=== PATIENT | female | born 1960 | race Caucasian/White ===

== ENCOUNTER 2017-11-01 08:49 | Inpatient (IN) ==
[2017-11-01] MEDS ORDERED: SODIUM CHLORIDE 0.9% 1,000 ML IV STA (09:48)
[2017-11-01] MEDS ORDERED: ONDANSETRON 4 MG/2 ML VIAL IV STA ×2 (09:48→13:40)
[2017-11-01 10:12] LABS: Basophils # 0.1 10*3/uL (0.0-0.2); Eosinophils # 0.1 10*3/uL (0.0-0.87); Eosinophils % 0.8 % (0.00-10.9); Hematocrit 39.4 VOL% (35.7-47.0); Immature Granulocytes % 2.5 %; Immature Granulocytes Absolute 0.15 #; Lymphocytes # 1.9 10*3/uL (1.4-4.0); Mean Corpuscular Hemoglobin 26 PG (27-34); Mean Corpuscular Volume 79.4 FL (87-102); Mean Platelet Volume 10.6 FL (9.6-12.0); Monocytes # 0.2 10*3/uL (0.11-0.8); Monocytes % 3.9 % (1.7-12.7); Neutrophils # 3.5 10*3/uL (1.4-7.4); Neutrophils % 59.8 % (38.7-73.9); Platelet Count 134 T/CUMM (130-400); Red Blood Count 4.96 MC/CUMM (3.8-5.5); White Blood Count 5.9 T/CUMM (4-12)
[2017-11-01 10:39] LABS: Lactic Acid 1.4 MMOL/L (0.4-2.0)
[2017-11-01 10:41] LABS: Albumin 3.5 G/DL (3.4-5.0); Bilirubin,Total 0.8 MG/DL (0.2-1.0); Calcium 9.3 MG/DL (8.5-10.1); Osmolality,Calculated 277.5 MOS/KG (273-304); Potassium 3.9 MMOL/L (3.5-5.1); Total Protein 7.1 G/DL (6.4-8.3)
[2017-11-01 10:46] LABS: Apearance,Urine CLEAR (Clear); Bilirubin,Urine Negative (Negative); Blood, Urine Negative (Negative); Glucose,Urine (UA) Negative (Negative); Ketones,Urine Negative (Negative); Mucus,Urine Occasional /LPF (Occasional); Nitrite,Urine Negative (Negative); Protein,Urine Negative; RBC,Urine 1 /HPF (0-4); Squamous Epithelial Cell,Urine Occasional /HPF (0-10); Urine Color Yellow (Yellow); Urine Specific Gravity 1.017 (1.001-1.035); WBC,Urine 1 /HPF (0-6)
[2017-11-01 12:20] LABS: Hepatitis A Ab IgM Quant 0.24 Index; Hepatitis A Ab IgM Result Negative (Negative); Hepatitis B Core IgM Quant 0.07 Index; Hepatitis B Core IgM Result Negative (Negative); Hepatitis B Surface Ag Result Negative (Negative); Hepatitis C Virus Ab Quant 0.08 Index; Hepatitis C Virus Ab Result Negative (Negative)
[2017-11-01] MEDS ORDERED: HYDROmorphone 2 MG/1 ML VIAL IV STA (13:40)
[2017-11-01] MEDS ORDERED: ACETAMINOPHEN 325 MG TABLET PO PRN (14:39)
[2017-11-01] MEDS ORDERED: ONDANSETRON 4 MG/2 ML VIAL IV PRN (14:39)
[2017-11-01] MEDS ORDERED: ENOXAPARIN 40 MG/0.4 ML SYRINGE SUBCUT SCH (15:00)
[2017-11-01] MEDS: SODIUM CHLORIDE 0.9% 1,000 ML IV SCH (16:51)
[2017-11-01] MEDS: BUDESONIDE/FORMOTEROL 160-4.5 INHALER 6 GM INH SCH (20:14)
[2017-11-01] MEDS ORDERED: ZALEPLON 5 MG CAPSULE PO PRN (21:00)
[2017-11-02] MEDS: SODIUM CHLORIDE 0.9% 1,000 ML IV SCH (05:54)
[2017-11-02 06:43] LABS: Basophils % 0.7 % (0.0-0.8); Eosinophils # 0.1 10*3/uL (0.0-0.87); Eosinophils % 1.4 % (0.00-10.9); Hematocrit 37.5 VOL% (35.7-47.0); Hemoglobin 11.8 GM/DL (12.0-16.0); Immature Granulocytes Absolute 0.17 #; Lymphocytes # 1.9 10*3/uL (1.4-4.0); Mean Corpuscular HGB Conc 31.5 GM/DL (32-36); Mean Corpuscular Hemoglobin 26 PG (27-34); Mean Corpuscular Volume 82.1 FL (87-102); Mean Platelet Volume 10.8 FL (9.6-12.0); Monocytes # 0.3 10*3/uL (0.11-0.8); Monocytes % 5.2 % (1.7-12.7); NRBC # 0.02 10*3/uL; Neutrophils # 3.1 10*3/uL (1.4-7.4); Neutrophils % 55.7 % (38.7-73.9); Platelet Count 135 T/CUMM (130-400); Red Blood Count 4.57 MC/CUMM (3.8-5.5); Red Cell Distribution Width 16.2 % (9.3-17.3); White Blood Count 5.6 T/CUMM (4-12)
[2017-11-02 07:35] LABS: Albumin 3.3 G/DL (3.4-5.0); Bilirubin,Total 0.8 MG/DL (0.2-1.0); Calcium 8.9 MG/DL (8.5-10.1); Osmolality,Calculated 270.8 MOS/KG (273-304); Potassium 4.2 MMOL/L (3.5-5.1); Risk Ratio 5.25; VLDL CHOLESTEROL 24.6 MG/DL
[2017-11-02] MEDS: PANTOPRAZOLE 40 MG TABLET PO SCH (09:19)
[2017-11-02] MEDS: BUDESONIDE/FORMOTEROL 160-4.5 INHALER 6 GM INH SCH ×2 (09:22→21:17)
[2017-11-02 13:04] LABS: INR 0.9; Partial Thromboplastin Time 27.1 SECS (0-40)
[2017-11-02] MEDS: NICOTINE 21 MG/24 HR PATCH TRANSDERM SCH (16:26)
[2017-11-03] MEDS: HYDROmorphone 2 MG/1 ML VIAL IV PRN (04:51)
[2017-11-03] MEDS ORDERED: PROMETHAZINE 25 MG/1 ML VIAL IM ONE (07:00)
[2017-11-03] MEDS ORDERED: MIDAZOLAM 2 MG/2 ML VIAL ONE (07:01)
[2017-11-03 07:30] LABS: Albumin 3.4 G/DL (3.4-5.0); Bilirubin,Total 0.6 MG/DL (0.2-1.0); Calcium 9.1 MG/DL (8.5-10.1); Osmolality,Calculated 275.5 MOS/KG (273-304); Potassium 3.8 MMOL/L (3.5-5.1); Total Protein 7.4 G/DL (6.4-8.3)
[2017-11-03] MEDS ORDERED: MIDAZOLAM 10 MG/2 ML VIAL IV ONE (07:30)
[2017-11-03] MEDS ORDERED: LIDOCAINE 1% 20 ML VIAL MISC INJ ONE (07:30)
[2017-11-03] MEDS ORDERED: LIDOCAINE 2% 20 ML VIAL RESP TX ONE (07:30)
[2017-11-03 07:33] LABS: Basophils # 0.1 10*3/uL (0.0-0.2); Eosinophils # 0.1 10*3/uL (0.0-0.87); Hematocrit 36.4 VOL% (35.7-47.0); Immature Granulocytes % 4.2 %; Lymphocytes # 1.6 10*3/uL (1.4-4.0); Lymphocytes % 33.8 % (21.3-54.2); Mean Corpuscular Hemoglobin 26 PG (27-34); Mean Corpuscular Volume 80.2 FL (87-102); Mean Platelet Volume 11.5 FL (9.6-12.0); Monocytes # 0.3 10*3/uL (0.11-0.8); Monocytes % 5.4 % (1.7-12.7); NRBC # 0.02 10*3/uL; Neutrophils # 2.6 10*3/uL (1.4-7.4); Neutrophils % 54.6 % (38.7-73.9); Platelet Count 132 T/CUMM (130-400); Red Blood Count 4.54 MC/CUMM (3.8-5.5); Red Cell Distribution Width 16.1 % (9.3-17.3); White Blood Count 4.8 T/CUMM (4-12)
[2017-11-03] MEDS: BUDESONIDE/FORMOTEROL 160-4.5 INHALER 6 GM INH SCH ×2 (10:36→20:30)
[2017-11-03] MEDS: NICOTINE 21 MG/24 HR PATCH TRANSDERM SCH (10:36)
[2017-11-03] MEDS: PANTOPRAZOLE 40 MG TABLET PO SCH (10:36)
[2017-11-03] MEDS ORDERED: ALBUTEROL/IPRATROPIUM 3 ML NEB RESP TX PRN (10:50)
[2017-11-03] MEDS ORDERED: ALBUTEROL/IPRATROPIUM 3 ML NEB RESP TX ONE (10:50)
[2017-11-03] MEDS: DOCUSATE SODIUM 100 MG CAPSULE PO SCH (17:25)
[2017-11-03] MEDS: DILTIAZEM 30 MG TABLET PO SCH ×2 (17:25→20:28)
[2017-11-04 05:50] LABS: Basophils % 0.6 % (0.0-0.8); Eosinophils # 0.1 10*3/uL (0.0-0.87); Lymphocytes # 1.6 10*3/uL (1.4-4.0); Mean Corpuscular HGB Conc 32.4 GM/DL (32-36); Mean Corpuscular Hemoglobin 26 PG (27-34); Mean Corpuscular Volume 80.8 FL (87-102); Mean Platelet Volume 11.2 FL (9.6-12.0); Monocytes # 0.2 10*3/uL (0.11-0.8); Monocytes % 4.4 % (1.7-12.7); NRBC # 0.03 10*3/uL; Neutrophils # 2.9 10*3/uL (1.4-7.4); Platelet Count 134 T/CUMM (130-400); Red Blood Count 4.58 MC/CUMM (3.8-5.5); Red Cell Distribution Width 16.3 % (9.3-17.3)
[2017-11-04 06:09] LABS: Albumin 3.2 G/DL (3.4-5.0); Bilirubin,Total 0.8 MG/DL (0.2-1.0); Calcium 8.8 MG/DL (8.5-10.1); Osmolality,Calculated 275.7 MOS/KG (273-304); Potassium 3.9 MMOL/L (3.5-5.1); Total Protein 7.3 G/DL (6.4-8.3)
[2017-11-04] MEDS ORDERED: POTASSIUM CHLORIDE 20 MEQ TABLET PO PRN (07:43)
[2017-11-04] MEDS: DILTIAZEM 30 MG TABLET PO SCH ×4 (08:21→20:54)
[2017-11-04] MEDS: DOCUSATE SODIUM 100 MG CAPSULE PO SCH ×2 (08:21→20:54)
[2017-11-04] MEDS: METOPROLOL SUCCINATE XL 25 MG TABLET PO SCH (08:21)
[2017-11-04] MEDS: PANTOPRAZOLE 40 MG TABLET PO SCH (08:21)
[2017-11-04] MEDS: NICOTINE 21 MG/24 HR PATCH TRANSDERM SCH (08:22)
[2017-11-04] MEDS: BUDESONIDE/FORMOTEROL 160-4.5 INHALER 6 GM INH SCH ×2 (08:24→21:00)
[2017-11-04] MEDS: ASPIRIN EC 81 MG TABLET PO SCH (09:16)
[2017-11-04] MEDS: HYDROmorphone 2 MG/1 ML VIAL IV PRN (21:00)
[2017-11-05 06:38] LABS: Basophils % 0.8 % (0.0-0.8); Eosinophils # 0.1 10*3/uL (0.0-0.87); Eosinophils % 1.2 % (0.00-10.9); Hematocrit 36.9 VOL% (35.7-47.0); Hemoglobin 11.7 GM/DL (12.0-16.0); Immature Granulocytes % 4.1 %; Lymphocytes # 1.9 10*3/uL (1.4-4.0); Lymphocytes % 38.1 % (21.3-54.2); Mean Corpuscular HGB Conc 31.7 GM/DL (32-36); Mean Corpuscular Hemoglobin 26 PG (27-34); Mean Platelet Volume 11.4 FL (9.6-12.0); Monocytes # 0.2 10*3/uL (0.11-0.8); Monocytes % 4.5 % (1.7-12.7); NRBC # 0.02 10*3/uL; Neutrophils # 2.5 10*3/uL (1.4-7.4); Neutrophils % 51.3 % (38.7-73.9); Platelet Count 125 T/CUMM (130-400); Red Cell Distribution Width 16.2 % (9.3-17.3); White Blood Count 4.9 T/CUMM (4-12)
[2017-11-05 06:47] LABS: Calcium 9.4 MG/DL (8.5-10.1); Osmolality,Calculated 272.8 MOS/KG (273-304); Potassium 3.9 MMOL/L (3.5-5.1)
[2017-11-05] MEDS: NICOTINE 21 MG/24 HR PATCH TRANSDERM SCH (10:02)
[2017-11-05] MEDS: DILTIAZEM 30 MG TABLET PO SCH (10:03)
[2017-11-05] MEDS: PANTOPRAZOLE 40 MG TABLET PO SCH (10:03)
[2017-11-05] MEDS: METOPROLOL SUCCINATE XL 25 MG TABLET PO SCH (10:03)
[2017-11-05] MEDS: DOCUSATE SODIUM 100 MG CAPSULE PO SCH (10:04)
[2017-11-05] MEDS: ASPIRIN EC 81 MG TABLET PO SCH (10:04)
[2017-11-05] MEDS: BUDESONIDE/FORMOTEROL 160-4.5 INHALER 6 GM INH SCH (10:05)
[2017-11-05 12:11] VITALS: BP 123/73
== END 2017-11-05 13:04 | disposition home or self-care (01) | DRG 181 ==
LOC: N.ED 08:49 → SUATTDRO 14:19 → N.EDINP 14:19 → N.5E 15:21
PROVIDERS: ADMIT Internal Medicine; ATTEND Internal Medicine
PROC: BRONCHB (2017-11-03 07:35)

== ENCOUNTER 2018-04-10 13:25 | Inpatient (IN) ==
[2018-04-10] MEDS ORDERED: ONDANSETRON 4 MG/2 ML VIAL IV PRN (14:01)
[2018-04-10] MEDS ORDERED: LOPERAMIDE 2 MG CAPSULE PO PRN ×2 (14:01)
[2018-04-10] MEDS ORDERED: chlorproMAZINE INJ 25 MG in SODIUM CHLORIDE 0.9% 100 ML IV PRN (14:01)
[2018-04-10] MEDS ORDERED: ALUMINUM/MAGNES/SIMETH MAX STR 30 ML UDCUP PO PRN (14:01)
[2018-04-10] MEDS ORDERED: ALPRAZolam 0.25 MG TABLET PO PRN (14:01)
[2018-04-10] MEDS ORDERED: PROMETHAZINE INJ 25 MG in SODIUM CHLORIDE 0.9% 50 ML IV PRN (14:01)
[2018-04-10] MEDS ORDERED: traMADol 50 MG TABLET PO PRN (14:01)
[2018-04-10] MEDS ORDERED: guaiFENesin 200 MG/10 ML UDCUP PO PRN (14:01)
[2018-04-10] MEDS ORDERED: chlorproMAZINE 25 MG TABLET PO PRN (14:01)
[2018-04-10] MEDS ORDERED: LACTULOSE 20 GM/30 ML UDCUP PO PRN (14:01)
[2018-04-10] MEDS ORDERED: diphenhydrAMINE CAP 25 MG CAPSULE PO PRN (14:01)
[2018-04-10] MEDS ORDERED: ACETAMINOPHEN 325 MG TABLET PO PRN (14:01)
[2018-04-10] MEDS ORDERED: BENZTROPINE 2 MG/2 ML AMP IV PRN (14:01)
[2018-04-10] MEDS ORDERED: TEMAZEPAM 7.5 MG CAPSULE PO PRN (14:01)
[2018-04-10] MEDS ORDERED: MYLANTA/LIDO VISC 2:1 300 ML BOTTLE SWISH/SWAL PRN (14:01)
[2018-04-10] MEDS ORDERED: MYLANTA/LIDO VISC 2:1 300 ML BOTTLE SWISH/SPIT PRN (14:01)
[2018-04-10] MEDS ORDERED: MAGNESIUM HYDROXIDE SUSP 30 ML UDCUP PO PRN (14:01)
[2018-04-10] MEDS ORDERED: chlorproMAZINE INJ 50 MG in SODIUM CHLORIDE 0.9% 100 ML IV PRN (14:01)
[2018-04-10 14:54] LABS: Basophils # 0.1 10*3/uL (0.0-0.2); Basophils % 0.5 % (0.0-0.8); Eosinophils # 0.1 10*3/uL (0.0-0.87); Eosinophils % 0.4 % (0.00-10.9); Hematocrit 42.7 VOL% (35.7-47.0); Hemoglobin 13.6 GM/DL (12.0-16.0); Immature Granulocytes % 0.9 %; Lymphocytes # 1.8 10*3/uL (1.4-4.0); Lymphocytes % 15.5 % (21.3-54.2); Mean Corpuscular HGB Conc 31.9 GM/DL (32-36); Mean Corpuscular Hemoglobin 26 PG (27-34); Mean Corpuscular Volume 81.8 FL (87-102); Mean Platelet Volume 9.8 FL (9.6-12.0); Monocytes # 0.7 10*3/uL (0.11-0.8); Monocytes % 5.9 % (1.7-12.7); Neutrophils # 8.8 10*3/uL (1.4-7.4); Neutrophils % 76.8 % (38.7-73.9); Platelet Count 262 T/CUMM (130-400); Red Blood Count 5.22 MC/CUMM (3.8-5.5); Red Cell Distribution Width 18.4 % (9.3-17.3); White Blood Count 11.5 T/CUMM (4-12)
[2018-04-10 15:23] LABS: Albumin 3.2 G/DL (3.4-5.0); Calcium 9.6 MG/DL (8.5-10.1); Osmolality,Calculated 258.9 MOS/KG (273-304); Potassium 3.1 MMOL/L (3.5-5.1); Total Protein 7.5 G/DL (6.4-8.3); Uric Acid 8.5 MG/DL (2.6-6.0)
[2018-04-10] MEDS: FLUCONAZOLE 200 MG TABLET PO SCH (18:40)
[2018-04-10] MEDS: POTASSIUM CHLORIDE 8 MEQ CAPSULE PO SCH (18:41)
[2018-04-10] MEDS: DEXAMETHASONE 4 MG TABLET PO SCH ×2 (18:42→20:12)
[2018-04-10] MEDS: levETIRAcetam 500 MG TABLET PO SCH (20:12)
[2018-04-11] MEDS: SODIUM CHLORIDE 0.9% 1,000 ML IV SCH ×2 (01:16→15:30)
[2018-04-11 06:28] LABS: Apearance,Urine CLEAR (Clear); Bacteria,Urine Occasional /HPF (Few); Bilirubin,Urine Negative (Negative); Blood, Urine Negative (Negative); Glucose,Urine (UA) Negative (Negative); Ketones,Urine 5 mg/dL (Negative); Mucus,Urine Occasional /LPF (Occasional); Nitrite,Urine Negative (Negative); Protein,Urine Negative; RBC,Urine 5 /HPF (0-4); Urine Color Amber (Yellow); Urine Specific Gravity > 1.060 (1.001-1.035); WBC,Urine <1 /HPF (0-6)
[2018-04-11] MEDS: FLUCONAZOLE 200 MG TABLET PO SCH (10:37)
[2018-04-11] MEDS: POTASSIUM CHLORIDE 8 MEQ CAPSULE PO SCH (10:38)
[2018-04-11] MEDS: levETIRAcetam 500 MG TABLET PO SCH ×2 (10:38→21:02)
[2018-04-11] MEDS: DEXAMETHASONE 4 MG TABLET PO SCH ×3 (10:38→21:02)
[2018-04-11] MEDS: ASPIRIN EC 81 MG TABLET PO SCH (10:48)
[2018-04-11] MEDS: METOPROLOL SUCCINATE XL 25 MG TABLET PO SCH (10:48)
[2018-04-11] MEDS: NICOTINE 21 MG/24 HR PATCH TRANSDERM SCH (10:50)
[2018-04-11] MEDS: FONDAPARINUX 2.5 MG/0.5 ML SYRINGE SUBCUT SCH (10:50)
[2018-04-12] MEDS: SODIUM CHLORIDE 0.9% 1,000 ML IV SCH ×2 (05:00→20:15)
[2018-04-12] MEDS: METOPROLOL SUCCINATE XL 25 MG TABLET PO SCH (09:51)
[2018-04-12] MEDS: levETIRAcetam 500 MG TABLET PO SCH ×2 (09:51→21:33)
[2018-04-12] MEDS: FLUCONAZOLE 200 MG TABLET PO SCH (09:51)
[2018-04-12] MEDS: ASPIRIN EC 81 MG TABLET PO SCH (09:51)
[2018-04-12] MEDS: DEXAMETHASONE 4 MG TABLET PO SCH ×3 (09:51→21:33)
[2018-04-12] MEDS: FONDAPARINUX 2.5 MG/0.5 ML SYRINGE SUBCUT SCH (09:51)
[2018-04-12] MEDS: NICOTINE 21 MG/24 HR PATCH TRANSDERM SCH (09:52)
[2018-04-12] MEDS: POTASSIUM CHLORIDE 8 MEQ CAPSULE PO SCH (10:40)
[2018-04-12] MEDS ORDERED: LORazepam 2 MG/1 ML VIAL IV ONE (12:29)
[2018-04-13 06:03] LABS: Basophils % 0.2 % (0.0-0.8); Eosinophils % 0.1 % (0.00-10.9); Hematocrit 38.9 VOL% (35.7-47.0); Immature Granulocytes % 1.9 %; Immature Granulocytes Absolute 0.17 #; Lymphocytes % 11.5 % (21.3-54.2); Mean Corpuscular HGB Conc 30.8 GM/DL (32-36); Mean Corpuscular Hemoglobin 26 PG (27-34); Mean Corpuscular Volume 83.7 FL (87-102); Mean Platelet Volume 10.2 FL (9.6-12.0); Monocytes # 0.4 10*3/uL (0.11-0.8); Monocytes % 4.8 % (1.7-12.7); Neutrophils # 7.4 10*3/uL (1.4-7.4); Neutrophils % 81.5 % (38.7-73.9); Platelet Count 218 T/CUMM (130-400); Red Blood Count 4.65 MC/CUMM (3.8-5.5); Red Cell Distribution Width 18.7 % (9.3-17.3)
[2018-04-13 06:22] LABS: Albumin 2.9 G/DL (3.4-5.0); Bilirubin,Total 1.1 MG/DL (0.2-1.0); Calcium 9.2 MG/DL (8.5-10.1); Potassium 3.9 MMOL/L (3.5-5.1); Total Protein 6.6 G/DL (6.4-8.3)
[2018-04-13] MEDS: ASPIRIN EC 81 MG TABLET PO SCH (09:20)
[2018-04-13] MEDS: DEXAMETHASONE 4 MG TABLET PO SCH ×3 (09:20→21:25)
[2018-04-13] MEDS: POTASSIUM CHLORIDE 8 MEQ CAPSULE PO SCH (09:20)
[2018-04-13] MEDS: NICOTINE 21 MG/24 HR PATCH TRANSDERM SCH (09:20)
[2018-04-13] MEDS: METOPROLOL SUCCINATE XL 25 MG TABLET PO SCH (09:20)
[2018-04-13] MEDS: levETIRAcetam 500 MG TABLET PO SCH ×2 (09:20→21:25)
[2018-04-13] MEDS: FLUCONAZOLE 200 MG TABLET PO SCH (09:20)
[2018-04-13] MEDS: FONDAPARINUX 2.5 MG/0.5 ML SYRINGE SUBCUT SCH (09:21)
[2018-04-14] MEDS: DOCUSATE SODIUM 100 MG CAPSULE PO SCH (13:25)
[2018-04-14] MEDS: FLUCONAZOLE 200 MG TABLET PO SCH (13:25)
[2018-04-14] MEDS: levETIRAcetam 500 MG TABLET PO SCH ×2 (13:25→21:12)
[2018-04-14] MEDS: NICOTINE 21 MG/24 HR PATCH TRANSDERM SCH (13:26)
[2018-04-14] MEDS: DEXAMETHASONE 4 MG TABLET PO SCH ×3 (13:26→21:12)
[2018-04-14] MEDS: POTASSIUM CHLORIDE 8 MEQ CAPSULE PO SCH (13:26)
[2018-04-14] MEDS: METOPROLOL SUCCINATE XL 25 MG TABLET PO SCH (13:26)
[2018-04-14] MEDS: ASPIRIN EC 81 MG TABLET PO SCH (13:26)
[2018-04-14] MEDS: FONDAPARINUX 2.5 MG/0.5 ML SYRINGE SUBCUT SCH (13:27)
[2018-04-15] MEDS ORDERED: NALOXONE 0.4 MG/ML VIAL IV ONE (10:08)
[2018-04-15] MEDS: POTASSIUM CHLORIDE 8 MEQ CAPSULE PO SCH (12:21)
[2018-04-15] MEDS: METOPROLOL SUCCINATE XL 25 MG TABLET PO SCH (12:21)
[2018-04-15] MEDS: NICOTINE 21 MG/24 HR PATCH TRANSDERM SCH (12:21)
[2018-04-15] MEDS: DOCUSATE SODIUM 100 MG CAPSULE PO SCH (12:23)
[2018-04-15] MEDS: FLUCONAZOLE 200 MG TABLET PO SCH (12:23)
[2018-04-15 13:05] VITALS: BP 101/73
[2018-04-15] MEDS: DEXAMETHASONE INJ 4 MG in SODIUM CHLORIDE 0.9% 50 ML IV SCH ×3 (15:32→22:06)
[2018-04-15] MEDS: ASPIRIN EC 81 MG TABLET PO SCH (16:59)
[2018-04-15] MEDS: DEXAMETHASONE 4 MG TABLET PO SCH (16:59)
[2018-04-15] MEDS: levETIRAcetam 500 MG TABLET PO SCH (17:00)
[2018-04-15] MEDS: FONDAPARINUX 2.5 MG/0.5 ML SYRINGE SUBCUT SCH (17:00)
[2018-04-15] MEDS ORDERED: SODIUM BICARBONATE 50 MEQ/50 ML SYRINGE IV ONE (18:11)
[2018-04-15] MEDS ORDERED: EPINEPHrine 1 MG/ML VIAL ONE (18:11)
[2018-04-15] MEDS ORDERED: ALBUTEROL 2.5 MG/3 ML NEB RESP TX PRN (19:17)
[2018-04-15 19:51] LABS: Basophils # 0.1 10*3/uL (0.0-0.2); Basophils % 0.5 % (0.0-0.8); Eosinophils % 0.1 % (0.00-10.9); Hematocrit 48.8 VOL% (35.7-47.0); Hemoglobin 15.3 GM/DL (12.0-16.0); Immature Granulocytes % 1.7 %; Immature Granulocytes Absolute 0.22 #; Mean Corpuscular HGB Conc 31.4 GM/DL (32-36); Mean Corpuscular Hemoglobin 26 PG (27-34); Mean Corpuscular Volume 83.8 FL (87-102); Mean Platelet Volume 9.9 FL (9.6-12.0); Monocytes # 0.6 10*3/uL (0.11-0.8); Monocytes % 4.3 % (1.7-12.7); NRBC # 0.03 10*3/uL; Neutrophils # 11.1 10*3/uL (1.4-7.4); Neutrophils % 85.4 % (38.7-73.9); Platelet Count 270 T/CUMM (130-400); Red Blood Count 5.82 MC/CUMM (3.8-5.5); Red Cell Distribution Width 20.2 % (9.3-17.3)
[2018-04-15 20:10] LABS: Albumin 3.3 G/DL (3.4-5.0); Bilirubin,Total 2.3 MG/DL (0.2-1.0); Calcium 9.6 MG/DL (8.5-10.1); Osmolality,Calculated 272.8 MOS/KG (273-304); Potassium 5.7 MMOL/L (3.5-5.1); Total Protein 7.6 G/DL (6.4-8.3)
[2018-04-15 20:11] LABS: ABG Base Excess -3.5 MMOL/L (-2.5-2.5); ABG HCO3 21.2 MMOL/L (20-26); ABG Oxygen Saturation 84.2 % (95-100); ABG PCO2 35.8 MM HG (35-48); ABG PH 7.376 (7.35-7.45); ABG TCO2 17.7 MMOL/L (23-27)
[2018-04-15] MEDS ORDERED: ETOMIDATE 20 MG/10 ML VIAL IV ONE (20:19)
[2018-04-15] MEDS ORDERED: VECURONIUM 10 MG VIAL IV ONE ×2 (20:21→20:35)
[2018-04-15] MEDS ORDERED: PROPOFOL 1,000 MG/100 ML BOTTLE IV ONE (20:48)
[2018-04-15] MEDS ORDERED: SODIUM CHLORIDE 0.9% 2,000 ML IV ONE (21:27)
[2018-04-15] MEDS ORDERED: METOPROLOL TARTRATE 5 MG/5 ML VIAL IV ONE (21:28)
[2018-04-15] MEDS ORDERED: PROPOFOL 1,000 MG/100 ML BOTTLE IV SCH (21:30)
[2018-04-15] MEDS ORDERED: LEVOFLOXACIN INJ 750 MG in PREMIX 1 EACH IV SCH (21:30)
[2018-04-15] MEDS ORDERED: MIDAZOLAM 100 MG in SODIUM CHLORIDE 0.9% 80 ML IV PRN (21:42)
[2018-04-15] MEDS: VANCOMYCIN INJ 1,000 MG in SODIUM CHLORIDE 0.9% 250 ML IV SCH (22:07)
[2018-04-15 23:23] LABS: Apearance,Urine CLOUDY (Clear); Bacteria,Urine Moderate /HPF (Few); Blood, Urine Large mg/dL (Negative); Glucose,Urine (UA) Negative (Negative); Hyaline Casts,Urine 26 /LPF (0-3); Ketones,Urine 5 mg/dL (Negative); Mucus,Urine Many /LPF (Occasional); Nitrite,Urine Negative (Negative); Protein,Urine 30 MG/DL; RBC,Urine 3 /HPF (0-4); Urine Color Amber (Yellow); Urine Specific Gravity 1.025 (1.001-1.035); WBC,Urine 6 /HPF (0-6)
[2018-04-15 23:24] LABS: Bilirubin,Urine Small mg/dL (Negative)
[2018-04-16 03:17] LABS: ABG Base Excess -4.4 MMOL/L (-2.5-2.5); ABG HCO3 20.9 MMOL/L (20-26); ABG Oxygen Saturation 99.5 % (95-100); ABG PCO2 46.1 MM HG (35-48); ABG PH 7.296 (7.35-7.45); ABG TCO2 19.6 MMOL/L (23-27); Pt O2 Delivery Device Ventilator
[2018-04-16] MEDS ORDERED: SODIUM BICARBONATE 50 MEQ/50 ML SYRINGE IV ONE (04:03)
[2018-04-16] MEDS ORDERED: METOPROLOL TARTRATE 5 MG/5 ML VIAL IV ONE (04:03)
[2018-04-16 04:21] LABS: Basophils % 0.3 % (0.0-0.8); Hemoglobin 13.7 GM/DL (12.0-16.0); Immature Granulocytes % 1.3 %; Immature Granulocytes Absolute 0.11 #; Lymphocytes # 0.5 10*3/uL (1.4-4.0); Lymphocytes % 6.1 % (21.3-54.2); Mean Corpuscular HGB Conc 30.4 GM/DL (32-36); Mean Corpuscular Hemoglobin 26 PG (27-34); Mean Corpuscular Volume 85.9 FL (87-102); Mean Platelet Volume 11.1 FL (9.6-12.0); Monocytes # 0.5 10*3/uL (0.11-0.8); Monocytes % 5.3 % (1.7-12.7); NRBC # 0.03 10*3/uL; Neutrophils # 7.6 10*3/uL (1.4-7.4); Platelet Count 206 T/CUMM (130-400); Red Blood Count 5.24 MC/CUMM (3.8-5.5); Red Cell Distribution Width 19.4 % (9.3-17.3); White Blood Count 8.8 T/CUMM (4-12)
[2018-04-16] MEDS: DEXAMETHASONE INJ 4 MG in SODIUM CHLORIDE 0.9% 50 ML IV SCH ×3 (04:22→15:56)
[2018-04-16 04:38] LABS: Albumin 2.8 G/DL (3.4-5.0); Calcium 8.5 MG/DL (8.5-10.1); Osmolality,Calculated 277.2 MOS/KG (273-304); Potassium 5.5 MMOL/L (3.5-5.1); Total Protein 6.6 G/DL (6.4-8.3)
[2018-04-16 08:06] LABS: ABG Base Excess -1.6 MMOL/L (-2.5-2.5); ABG HCO3 21.2 MMOL/L (20-26); ABG PCO2 30.7 MM HG (35-48); ABG PH 7.457 (7.35-7.45); ABG PO2 114.7 MM HG (80-95); ABG TCO2 22.1 MMOL/L (23-27)
[2018-04-16] MEDS: DOCUSATE SODIUM 100 MG CAPSULE PO SCH (08:28)
[2018-04-16] MEDS: POTASSIUM CHLORIDE 8 MEQ CAPSULE PO SCH (08:28)
[2018-04-16] MEDS: NICOTINE 21 MG/24 HR PATCH TRANSDERM SCH (08:28)
[2018-04-16] MEDS: FLUCONAZOLE 200 MG TABLET PO SCH (08:28)
[2018-04-16] MEDS: METOPROLOL SUCCINATE XL 25 MG TABLET PO SCH (08:28)
[2018-04-16] MEDS: VANCOMYCIN INJ 1,000 MG in SODIUM CHLORIDE 0.9% 250 ML IV SCH (08:29)
[2018-04-16] MEDS ORDERED: NOREPINEPHRINE 8 MG in SODIUM CHLORIDE 0.9% 242 ML IV PRN (10:01)
[2018-04-16] MEDS ORDERED: ALBUTEROL/IPRATROPIUM 3 ML NEB RESP TX SCH (13:00)
[2018-04-16] MEDS ORDERED: DEXTROSE 50% 25 GM/50 ML SYRINGE IV ONE (14:23)
[2018-04-16] MEDS ORDERED: INSULIN REGULAR 100 UNIT/ML IV ONE (14:24)
[2018-04-16] MEDS ORDERED: PHENYLEPHRINE DRIP 40 MG/250 ML PREMIX IV PRN (17:34)
[2018-04-16] MEDS ORDERED: EPINEPHrine 1 MG/10 ML SYRINGE ONE ×2 (18:22→18:27)
[2018-04-16] MEDS ORDERED: EPINEPHrine 1 MG/ML VIAL ONE (18:27)
== END 2018-04-16 18:41 | disposition expired | DRG 41 ==
LOC: SUATTDRO 13:40 → N.4E 13:40 → N.CC 04-15 20:59
PROVIDERS: ADMIT Specialist; ATTEND Specialist